=== PATIENT | female | born 2000 | race Caucasian/White ===

== ENCOUNTER 2023-10-08 17:27 | Emergency (ER) | payer OTHER, SELFPAY ==
[2023-10-08 17:31] VITALS: BP 141/76
[2023-10-08 17:40] VITALS: BMI 36.5
--- NOTE | 2023-10-08 20:31 | ED.GENMED ---
History of Present Illness
General
Chief Complaint: Musculo-Skeletal Complaint
Source: patient
Exam Limitations: none
Time Seen by Provider: 10/08/23 19:34
Nursing documentation reviewed up to this point in time: agreed with
History of Present Illness
History of Present Illness:
pt is a 22 y/o F --> M transgender
on testosterone
says he was lifting boxes at work but doesn't recal specfiic injury but developed R shoulder pain wiith extension and abduction and went to urgent care 3 days ago. had xrays but wasn't told anything specific; he actually didn't understand what the
person was saying.
he was told maybe he should see ortho
pt has not had any swelling
but has had worsening pain despite dose of motri n800 today
and feels pain from right trapexius down to right biceps region worse with lifting
he has a sling
Past History
Past History
ED Past Medical History: Other (R mastoiditis July 2019; transgender )
ED Past Surgical History: Tonsilectomy
Social History
Tobacco: Non-smoker
Alcohol: None
Drug: None
Personal: Single
Living: with family
Employment: Employed
Family History
Family History: Other
Phy Exam
Physical Exam
Physical Exam:
GENERAL: Alert , in no apparent distress
EYE: pupils equal and reactive
NECK: Supple
full rom
mild righ ttrap tenderness
no midline tenderness
CARDIAC: Regular rate and rhythm .
LUNGS: Clear breath sounds bilaterally, no acute respiratory distress, no wheezes/rales/rhonchi
NEUROLOGICAL: Alert and oriented, no focal neuro deficits, cn intact, strength intact, sensation intact
SKIN: Warm and dry, skin intact. no bruising
MUSCULOSKELETAL:normal inspection shoulder and RUE
tender right humeral head, ac joint
neg drop arm test
full rom intact with pain with abudction and extension and some pain with rotation
normal distal sensation and strength
PSYCH: Normal and appropriate interaction.
Course
Orders/Labs/Results
Orders:
Orders
10/08/23 19:52
CR Shoulder - Right Min 2 View Urgent
Reason For Exam: shoudler pain
Cervical Spine 4 or 5 Vw [CR Cervical Spine 4 Or 5 Vw] Urgent
Comment:
Reason For Exam: right sided neck pain, burning
10/08/23 20:44
Acetaminophen [Tylenol] 1,000 mg PO NOW STA
Vital Signs
Initial and Last Documented VS:
Initial Vital Signs
Temp Pulse Resp BP Pulse Ox
98.0 F 58 16 141/76 98
10/08/23 17:31 10/08/23 17:31 10/08/23 17:31 10/08/23 17:31 10/08/23 17:31
Last Documented Vital Signs
Temp Pulse Resp BP Pulse Ox
98.0 F 58 16 141/76 98
10/08/23 17:31 10/08/23 17:31 10/08/23 17:31 10/08/23 17:31 10/08/23 17:31
MDM/Problems Addressed
Differential Diagnosis Includes:
rotator cuff sprain, ac separation, radiculopathy
MDM/Problems Addressed:
22 y/o F to M
on testosterone
hre with right shoulder pain after suspecting injury during lifting at work
pt says that he went to urgent care and wasn't sure what they told him but he shouldf u with ortho
pain was worse so he came for second opinion
pt has no swelling, numbness, but feels burning pain in the right shoulder and into the right upper arm
no weakness
pain is worse with movement but it preserved
neg drop arm test
normal inspection
normal NV exam
pain worse with abudction and extension
xray indep reviewed, pt does have what looks like AC separation
will recommend sling and f/u ortho as already encouraged
add tylenol for pain
*Critical Care Note
Total Time (30-74mins, 75-104mins- exclusive of procedures): Not Applicable
ED Attending Note
-
Portions of this chart may have been created with voice recognition software.� Occasional wrong word or��sound alike� substitutions may have occurred due to the inherent limitations of voice recognition software.
Discharge Plan
Departure
Patient Disposition: Home (Routine Discharge)
Date of Disposition: 10/08/23
Time of Disposition: 20:46
Patient with high blood pressure during this ER visit?: Yes
Condition: Fair
Covid-19: Not Applicable
Discharge Problem:
AC separation
Instructions: Shoulder Sprain (DC)
Prescriptions:
No Action
trazodone 50 MG tablet
100 mg PO HS
buspirone 10 MG tablet
15 mg PO DAILY
lamotrigine [Lamictal XR] 50 MG tablet extended release 24hr
100 mg PO DAILY
Norelgestromin/Ethin.Estradiol [Xulane 150-35 Mcg/Day Patch] 1 EACH Patch.Tdwk
1 ea TD WEEKLY
ciprofloxacin HCl [Cipro] 500 MG tablet
500 mg PO BID Qty: 14 0RF
ondansetron HCl 4 mg tablet
4 mg PO Q6H PRN (Reason: nausea and vomiting) Qty: 10 0RF
Referrals:
Chris Flanagan MD [Active] - Follow up in 1 week (ORTHO)
Alee Kumar CRNP [Family Provider] - Follow up in 2-3 days
Stand Alone Forms: Return to Work
Activity Restrictions/Additional Instructions:
YOUR XRAY SUGGESTS POSSIBLE AC SEPARATION (WHICH WOULD BE A SPRAIN OF THE LIGAMENTS IN BETWEEN YOUR SHOULDER JOINT AND YOUR CLAVICLE)
MOTRIN 800 MG 3 TIMES A DAY WITH FOOD
ADD YTLENOL EVERY 6 HOURS NEEDED
ICE OFF AND ON
USE THE SLING
FOLLOW UP WITH ORTHOPEDICS
IF THIS IS WORKMAN'S COMP MAKE SURE YOU CALL YOUR [employer] [facility].
RETURN FO RANY CONCNERS: NUMBNESS/WEAKNESS IN THE ARM, SEVERE PAIN, FEVER, REDNESS OF THE ARM OR ANY CNOCERNS.
Interventions
Interventions:
*Risk Screen - Suicide Last Done: 10/08/23 17:40
*General Assessment Last Done: 10/08/23 17:40
*Neglect/Abuse Screening Last Done: 10/08/23 17:40
ED- Fall Risk Assessment Last Done: 10/08/23 17:44
*ED COVID-19 Vaccine History Last Done: 10/08/23 17:40
*Nursing Disposition Last Done: 10/08/23 21:04
ED-Musculoskeletal Assessment Last Done: 10/08/23 17:40
Discharge Date and Time
Discharge Date/Time: 10/08/23 21:09
Print Language: PRYDEINIG
[2023-10-08] MEDS: TYLENOL 1000 MG PO (20:55)
== END 2023-10-08 21:09 | disposition home or self-care (01) ==
LOC: EMR 17:27
PROVIDERS: EMERGENCY PHYSICIAN Emergency Medicine; FAMILY PHYSICIAN Nurse Practitioner Family
DX: S43.101A Unspecified dislocation of right acromioclavicular joint, initial encounter (principal); X50.0XXA Overexertion from strenuous movement or load, initial encounter; Y99.0 Civilian activity done for income or pay
CPT/HCPCS: 99283; 72050; 73030

== ENCOUNTER 2024-10-15 14:21 | Emergency (ER) | payer SELFPAY ==
[2024-10-15 14:23] VITALS: BP 145/80
--- NOTE | 2024-10-15 14:49 | ED.GENMED ---
History of Present Illness
General
Chief Complaint: Head Injury
Source: patient
Exam Limitations: none
Time Seen by Provider: 10/15/24 14:39
Nursing documentation reviewed up to this point in time: agreed with
History of Present Illness
History of Present Illness:
Patient presents to ED secondary to persistent headache over the past 2 weeks after falling backwards and hitting back of head against the steps, while walking down. Patient had similar episode 1 year ago, at which time, patient was evaluated at
hospital with normal imaging study. Since fall 2 weeks ago, patient states that symptoms have persisted, but not worsened. Denies dizziness. Denies nausea or vomiting. Denies fever. Denies loss of sensation or weakness. Denies loss of
appetite. Denies neck pain.
Past History
Past History
ED Past Medical History: Other (R mastoiditis July 2019; transgender )
ED Past Surgical History: Tonsilectomy
Social History
Tobacco: Non-smoker
Alcohol: None
Drug: None
Personal: Single
Living: with family
Employment: Employed
Family History
Family History: Other
Review of Systems
Review of Systems
Allergies reviewed?: Yes
All Other Systems: ROS reviewed and negative except as documented in HPI and ROS
Constitutional: Reports no symptoms; Denies fever
Respiratory: Reports no symptoms; Denies trouble breathing
Cardiac: Reports no symptoms; Denies palpitations
ABD/GI: Reports no symptoms; Denies nausea or vomiting
Musculoskeletal: Reports no symptoms
Skin: Reports no symptoms
Neurological: Reports headache; Denies dizzy, weakness or numbness
Phy Exam
Physical Exam
Physical Exam:
Physical Exam
General: no apparent distress, not acutely ill. afebrile.
Head: nc/at. eomi
Neck: supple. normal range of motion.
Heart: s1/s2 regular rate and rhythm
Lungs: no acute respiratory distress. clear bilaterally
Abdomen: normal bowel sounds. not tender.
Neuro: alert and oriented x 3 . no focal neurological deficits. normal speech. normal gait.
Skin: no rash
Psychiatric: well kept. interactive and cooperative
Extremities: no edema. no calf tenderness.
Course
Vital Signs
Initial and Last Documented VS:
Initial Vital Signs
Temp Pulse Resp BP Pulse Ox
97.5 F 52 16 145/80 98
10/15/24 14:23 10/15/24 14:23 10/15/24 14:23 10/15/24 14:23 10/15/24 14:23
Last Documented Vital Signs
Temp Pulse Resp BP Pulse Ox
97.5 F 52 16 145/80 98
10/15/24 14:23 10/15/24 14:23 10/15/24 14:23 10/15/24 14:23 10/15/24 14:49
MDM/Problems Addressed
MDM/Problems Addressed:
History and exam consistent with likely postconcussion symptoms. In light of patient's duration of symptoms, with patient's current mental status and without a neurological deficit, no indication for obtaining imaging studies at this time.
Especially, as patient received likely CT imaging study from trauma 1 year ago, we will attempt to avoid repeat radiation exposure. However, as patient is a [facility] resident, without health insurance, will advise patient to contact
[facility] for outpatient evaluation and treatment. Patient expresses understanding at time of discharge.
*Pulse Oximetry
SaO2: 98
Oxygen Mode of Delivery: Room air
Patient hypoxic: no
*Critical Care Note
Total Time (30-74mins, 75-104mins- exclusive of procedures): Not Applicable
ED Attending Note
-
Portions of this chart may have been created with voice recognition software.� Occasional wrong word or��sound alike� substitutions may have occurred due to the inherent limitations of voice recognition software.
Discharge Plan
Departure
Patient Disposition: Home (Routine Discharge)
Date of Disposition: 10/15/24
Time of Disposition: 14:49
Patient with high blood pressure during this ER visit?: Yes
Condition: Fair
Discharge Problem:
Post concussion syndrome
Instructions: Concussion, Adult (DC)
Prescriptions:
No Action
trazodone 50 MG tablet
100 mg PO HS
buspirone 10 MG tablet
15 mg PO DAILY
lamotrigine [Lamictal XR] 50 MG tablet extended release 24hr
100 mg PO DAILY
Norelgestromin/Ethin.Estradiol [Xulane 150-35 Mcg/Day Patch] 1 EACH Patch.Tdwk
1 ea TD WEEKLY
ciprofloxacin HCl [Cipro] 500 MG tablet
500 mg PO BID Qty: 14 0RF
ondansetron HCl 4 mg tablet
4 mg PO Q6H PRN (Reason: nausea and vomiting) Qty: 10 0RF
Stand Alone Forms: Return to Work
Activity Restrictions/Additional Instructions:
As discussed, please follow-up with [facility] medical clinic for continual evaluation and treatment. Please consider return to ED with worsening symptoms.
Interventions
Interventions:
*Risk Screen - Suicide Last Done: 10/15/24 14:23
*General Assessment Last Done: 10/15/24 14:40
*Neglect/Abuse Screening Last Done: 10/15/24 14:23
*ED- Fall Risk Assessment Last Done: 10/15/24 14:40
*ED COVID-19 Vaccine History Last Done: 10/15/24 14:40
*Nursing Disposition Last Done: 10/15/24 15:03
ED- Neurological Assessment Last Done: 10/15/24 14:40
Discharge Date and Time
Discharge Date/Time: 10/15/24 15:04
Print Language: GUAMANIAN
== END 2024-10-15 15:04 | disposition home or self-care (01) ==
LOC: EMR 14:21
PROVIDERS: EMERGENCY PHYSICIAN Emergency Medicine; FAMILY PHYSICIAN Nurse Practitioner Family
DX: G44.309 Post-traumatic headache, unspecified, not intractable (principal); F07.81 Postconcussional syndrome; R03.0 Elevated blood-pressure reading, without diagnosis of hypertension; Z59.71 Insufficient health insurance coverage; W22.09XA Striking against other stationary object, initial encounter; W10.9XXA Fall (on) (from) unspecified stairs and steps, initial encounter; Y93.01 Activity, walking, marching and hiking
CPT/HCPCS: 99282